=== PATIENT | female | born 1975 | race Caucasian/White ===

== ENCOUNTER 2021-09-14 09:02 | Outpatient (CLI) | payer BC | END 2021-09-14 09:03 | disposition home or self-care (01) | LOC: BICMAMMO 09:02 | PROVIDERS: ATTEND Obstetrics & Gynecology | DX: R92.2 Inconclusive mammogram (principal) | CPT/HCPCS: G0279 ==

== ENCOUNTER 2022-11-08 14:00 | Outpatient (CLI) | payer BC | END 2022-11-08 14:01 | disposition home or self-care (01) | LOC: BICMAMMO 14:00 | PROVIDERS: ATTEND Obstetrics & Gynecology | DX: Z12.31 Encounter for screening mammogram for malignant neoplasm of breast (principal) | CPT/HCPCS: 77063; 77067 ==